=== PATIENT | female | born 1995 | race American Indian/Alaskan Native ===

== ENCOUNTER 2017-03-11 14:47 | Emergency (ER) | payer SELFPAY ==
[2017-03-11 15:33] VITALS: BP 144/85
== END 2017-03-11 18:00 | disposition left against medical advice (07) ==
LOC: ED 14:47
DX: M54.2 Cervicalgia (principal); M79.602 Pain in left arm; M54.9 Dorsalgia, unspecified; F32.9 Major depressive disorder, single episode, unspecified; F17.200 Nicotine dependence, unspecified, uncomplicated; F12.90 Cannabis use, unspecified, uncomplicated; V49.9XXA Car occupant (driver) (passenger) injured in unspecified traffic accident, initial encounter; Y93.89 Activity, other specified; Y99.9 Unspecified external cause status; Y92.410 Unspecified street and highway as the place of occurrence of the external cause; Z53.21 Procedure and treatment not carried out due to patient leaving prior to being seen by health care provider